=== PATIENT | male | born 1980 | race Caucasian/White ===

== ENCOUNTER 2022-09-18 10:31 | Emergency (ER) | payer OTHER, BC ==
[2022-09-18 10:41] VITALS: BP 140/83; PULSE 72; RESP 18; TEMP 98.1; BMI 32.9
== END 2022-09-18 13:07 | disposition home or self-care (01) ==
LOC: JERFT 10:31
PROC: 0HQ1XZZ Repair Face Skin, External Approach (ICD-10-PCS; principal; 2022-09-18)
DX: S01.112A Laceration without foreign body of left eyelid and periocular area, initial encounter (principal); W26.8XXA Contact with other sharp object(s), not elsewhere classified, initial encounter
CPT/HCPCS: 99282-25